=== PATIENT | male | born 1975 | race Caucasian/White ===

== ENCOUNTER → 2019-05-23 | Outpatient (CLI) | payer MEDICAID ==
[~2019-05-23] MED LIST: METOPROLOL 5 MG INJ ONE; NITROGLYCERIN AEROSOL (4.9 GM) ONE
== END | disposition home or self-care (01) ==
LOC: LAB 16:36
PROVIDERS: ATTEND Nuclear Medicine Nuclear Cardiology
DX: R07.9 Chest pain, unspecified (principal); R06.02 Shortness of breath
CPT/HCPCS: 80048

== ENCOUNTER → 2019-05-24 | Outpatient (CLI) | payer MEDICAID ==
[~2019-05-24] MED LIST changes: +IOHEXOL 100 ML ONE; +METOPROLOL 5 MG INJ IV ONE; -METOPROLOL 5 MG INJ ONE; -NITROGLYCERIN AEROSOL (4.9 GM) ONE; +NITROGLYCERIN AEROSOL (4.9 GM) SL PRN; +SOD CHLORIDE 0.9% 100 ML ONE
== END | disposition home or self-care (01) ==
LOC: C/S 11:19 → EDUNIT# 13:00
PROVIDERS: ATTEND Nuclear Medicine Nuclear Cardiology
DX: R07.9 Chest pain, unspecified (principal); R06.02 Shortness of breath
CPT/HCPCS: 75571; 75574; Q9967; Z7610